=== PATIENT | female | born 1980 | race Caucasian/White ===

== ENCOUNTER 2019-04-17 01:42 | Emergency (ER) | payer MEDICAID ==
[~2019-04-17] VITALS: Ht 162.6 cm; Wt 93.6 kg
[2019-04-17] MEDS ORDERED: IBUPROFEN 800MG TABLET PO ONE (04:30)
[2019-04-17 06:08] VITALS: BP 109/82
== END 2019-04-17 06:09 | disposition home or self-care (01) ==
LOC: ER 01:42
DX: M72.2 Plantar fascial fibromatosis (principal)
CPT/HCPCS: 73630; 99283